=== PATIENT | male | born 1970 | race Caucasian/White ===

== ENCOUNTER 2021-11-01 14:37 | Emergency (ER) | payer SELFPAY ==
[~2021-11-01] VITALS: Ht 185.4 cm; Wt 131.5 kg
[~2021-11-01 14:37] MED LIST: CEPH500 PO; HYDACE5; HYDACE5 PO; RXCEPH500 PO
[2021-11-01 15:50] LABS: BASOPHILS ABSOLUTE AUTO 0.05 K/mm3 (0.00-0.23); BASOPHILS PERCENT AUTO 0 % (0-2); EOSINOPHILS PERCENT AUTO 0 % (0-6); Hematocrit 39.7 % (37.0-53.0); Hemoglobin 13.6 g/dL (13.5-17.5); IMMATURE GRAN ABSOLUTE AUTO 0.24 K/mm3 (0.00-0.10); IMMATURE GRAN PERCENT AUTO 1 % (0-1); LYMPHOCYTES ABSOLUTE AUTO 1.14 K/mm3 (0.84-5.20); LYMPHOCYTES PERCENT AUTO 5 % (21-46); MONOCYTES ABSOLUTE AUTO 1.72 K/mm3 (0.16-1.47); MONOCYTES PERCENT AUTO 7 % (4-13); Mean Corpuscular HGB Conc 34.3 g/dL (31.5-36.5); Mean Corpuscular Volume 82 fL (80-100); Mean Platelet Volume 10.8 fL (9.1-12.4); NEUTROPHILS ABSOLUTE AUTO 20.02 K/mm3 (1.96-9.15); NEUTROPHILS PERCENT AUTO 87 % (41-73); Platelet Count 231 K/mm3 (150-400); RDW Coefficient Variation 12.1 % (11.7-14.2); RDW Standard Deviation 36.2 fL (35.1-46.3); Red Blood Cell Count 4.85 M/mm3 (4.30-5.90); White Blood Cell Count 23.17 K/mm3 (4.00-11.30)
[2021-11-01 16:11] LABS: Alanine Aminotransfer (ALT/SGP 21 U/L (12-78); Albumin, Blood 3.5 g/dL (3.4-5.0); Albumin/Globulin Ratio 0.9 (0.8-1.8); Alk Phos 80 U/L (50-136); Anion Gap 7 mmol/L (6-16); Aspartate Aminotrans (AST/SGOT 8 U/L (12-37); Bilirubin, Total 0.8 mg/dL (0.1-1.0); Blood Urea Nitrogen 10 mg/dL (8-24); Bun/Creatinine Ratio 23.6 (12.0-20.0); C-REACTIVE PROTEIN, EXT RANGE >19.000 mg/dL (0.000-0.300); CO2, Blood 24 mmol/L (21-32); Chloride, Blood 99 mmol/L (98-108); Creatinine, Blood 0.42 mg/dL (0.60-1.20); Glomerular Filtration Rate 129 (60-); Glucose, Blood 285 mg/dL (70-99); Potassium, Blood 3.6 mmol/L (3.5-5.5); Sodium, Blood 130 mmol/L (136-145); Total Protein, Blood 7.5 g/dL (6.4-8.2)
[2021-11-01] MEDS ORDERED: CEPH500 PO (16:47)
[2021-11-01] MEDS ORDERED: Bactrim Ds Tab1 EACH PO (16:47)
== END 2021-11-01 17:02 | disposition home or self-care (01) ==
LOC: ER 14:37
PROVIDERS: Physician Assistant
DX: L03.115 Cellulitis of right lower limb (principal); R73.9 Hyperglycemia, unspecified
CPT/HCPCS: 36415; 80053; 85025; 86140; 96374; 99283-25; J0690

== ENCOUNTER 2021-11-06 14:48 | Inpatient (IN) | payer SELFPAY ==
[~2021-11-06] VITALS: Ht 188 cm; Wt 132.4 kg
[~2021-11-06 14:48] MED LIST changes: +Bactrim Ds Tab1 EACH PO
[2021-11-06 15:33] LABS: BASOPHILS ABSOLUTE AUTO 0.08 K/mm3 (0.00-0.23); BASOPHILS PERCENT AUTO 0 % (0-2); EOSINOPHILS PERCENT AUTO 1 % (0-6); Hematocrit 38.5 % (37.0-53.0); Hemoglobin 13.1 g/dL (13.5-17.5); IMMATURE GRAN ABSOLUTE AUTO 0.38 K/mm3 (0.00-0.10); IMMATURE GRAN PERCENT AUTO 2 % (0-1); LYMPHOCYTES ABSOLUTE AUTO 2.13 K/mm3 (0.84-5.20); LYMPHOCYTES PERCENT AUTO 12 % (21-46); MONOCYTES ABSOLUTE AUTO 1.19 K/mm3 (0.16-1.47); MONOCYTES PERCENT AUTO 7 % (4-13); Mean Corpuscular HGB 27.8 pg (26.0-34.0); Mean Corpuscular Volume 82 fL (80-100); Mean Platelet Volume 10.2 fL (9.1-12.4); NEUTROPHILS ABSOLUTE AUTO 14.03 K/mm3 (1.96-9.15); NEUTROPHILS PERCENT AUTO 78 % (41-73); Platelet Count 344 K/mm3 (150-400); RDW Coefficient Variation 11.9 % (11.7-14.2); RDW Standard Deviation 35.8 fL (35.1-46.3); Red Blood Cell Count 4.72 M/mm3 (4.30-5.90); White Blood Cell Count 17.91 K/mm3 (4.00-11.30)
[2021-11-06 16:33] LABS: Albumin, Blood 2.9 g/dL (3.4-5.0); Albumin/Globulin Ratio 0.6 (0.8-1.8); Bilirubin, Total 0.4 mg/dL (0.1-1.0); Bun/Creatinine Ratio 18.9 (12.0-20.0); Calcium, Blood 9.4 mg/dL (8.5-10.1); Creatinine, Blood 0.64 mg/dL (0.60-1.20); Globulin, Blood 5.2 g/dL (2.2-4.0); Potassium, Blood 3.6 mmol/L (3.5-5.5); Total Protein, Blood 8.1 g/dL (6.4-8.2)
--- NOTE | 2021-11-06 22:24 | NUR ---
PT NEW ADMIT FOR R FOOT INFECTION, PODIATRY CONSULTED IN ER. PT 1 SBA W/ FWW TO BED. NON-WEIGHT BEARING TO R FOOT. ASHLEY WRAP TO R FOOT APPEARS CDI. IVF PER ORDERS.USES URINAL AT BEDSIDE.PT DENIES PAIN, EDUCATED ON NPO STATUS AT MIDNIGHT. VSS. CALL LIGHT IN REACH.
--- NOTE | 2021-11-07 04:10 | NUR ---
SHIFT SUMMARY NO ACUTE CHANGES SINCE PT ARRIVAL TO THE FLOOR. NPO SINCE MIDNIGHT. UP WITH 1 ASSIST FWW TO [facility]. DENIES PAIN, ABX AND IVF PER ORDERS. CALLS APPROPRIATELY. CALL LIGHT IN REACH, WILL REPORT TO DAY RN.
[2021-11-07 05:02] LABS: BASOPHILS ABSOLUTE AUTO 0.06 K/mm3 (0.00-0.23); BASOPHILS PERCENT AUTO 0 % (0-2); EOSINOPHILS ABSOLUTE AUTO 0.15 K/mm3 (0.00-0.68); EOSINOPHILS PERCENT AUTO 1 % (0-6); Hematocrit 33.7 % (37.0-53.0); Hemoglobin 11.1 g/dL (13.5-17.5); IMMATURE GRAN ABSOLUTE AUTO 0.28 K/mm3 (0.00-0.10); IMMATURE GRAN PERCENT AUTO 2 % (0-1); LYMPHOCYTES ABSOLUTE AUTO 2.23 K/mm3 (0.84-5.20); LYMPHOCYTES PERCENT AUTO 16 % (21-46); MONOCYTES PERCENT AUTO 6 % (4-13); Mean Corpuscular HGB 27.5 pg (26.0-34.0); Mean Corpuscular HGB Conc 32.9 g/dL (31.5-36.5); Mean Corpuscular Volume 83 fL (80-100); Mean Platelet Volume 10.4 fL (9.1-12.4); NEUTROPHILS PERCENT AUTO 74 % (41-73); Platelet Count 317 K/mm3 (150-400); RDW Coefficient Variation 12.2 % (11.7-14.2); RDW Standard Deviation 37.1 fL (35.1-46.3); Red Blood Cell Count 4.04 M/mm3 (4.30-5.90); White Blood Cell Count 14.12 K/mm3 (4.00-11.30)
[2021-11-07 05:30] LABS: Albumin, Blood 2.2 g/dL (3.4-5.0); Albumin/Globulin Ratio 0.5 (0.8-1.8); Bilirubin, Total 0.5 mg/dL (0.1-1.0); Bun/Creatinine Ratio 54.2 (12.0-20.0); Creatinine, Blood 0.17 mg/dL (0.60-1.20); Globulin, Blood 4.1 g/dL (2.2-4.0); Potassium, Blood 3.8 mmol/L (3.5-5.5); Total Protein, Blood 6.3 g/dL (6.4-8.2)
[2021-11-07 08:19] LABS: Mean Platelet Volume 10.4 fL (9.1-12.4); Platelet Count 318 K/mm3 (150-400)
[2021-11-07 11:35] LABS: Influenza A, PCR NEGATIVE (NEGATIVE); Influenza B, PCR NEGATIVE (NEGATIVE); Resp Syncytial Virus, PCR NEGATIVE (NEGATIVE); SARS-Cov-2 (COVID-19) PCR, MMC NEGATIVE (NEGATIVE)
--- NOTE | 2021-11-07 13:24 | NUR ---
PT TO OR AT ABOUT 1205
--- NOTE | 2021-11-07 16:18 | NUR ---
POST OP: REPORT RECEIVED FROM ALIRIO TELEGRAPHER AGENT. PT TO UNIT AT 1440. PT IS A/O, VSS, EFFECTED LEG ELEVATED ON PILLOWS IN BED. PT DENIES PAIN AT THIS TIME. DRESSING TO R FOOT CDI. WILL CTM
--- NOTE | 2021-11-08 04:59 | NUR ---
POD1 FOR TMA OF THE RIGHT FOOT. VSS. PT HAS NOT C/O ANY PAIN, REPORTS OF PRESSURE FROM THE BANDAGE. PT AMBULATED TO THE BATHROOM MMULTIPLE TIMES WITH ONE ASSIST, FWW AND GT BELT. REDDNESS OF THE RLE HAS NOT EXTENDED PAST THE MARKINGS ON THE PATIENTS LEG. PT VOIDING AND HAD A BM. CURRENTLY RESTING IN NO DISTRESS.
[2021-11-08 05:45] LABS: Vancomycin, Trough 7.9 ug/mL (5.0-10.0)
[2021-11-08 08:38] LABS: BASOPHILS ABSOLUTE AUTO 0.03 K/mm3 (0.00-0.23); BASOPHILS PERCENT AUTO 0 % (0-2); EOSINOPHILS ABSOLUTE AUTO 0.19 K/mm3 (0.00-0.68); EOSINOPHILS PERCENT AUTO 2 % (0-6); Hematocrit 33.8 % (37.0-53.0); Hemoglobin 11.1 g/dL (13.5-17.5); IMMATURE GRAN PERCENT AUTO 2 % (0-1); LYMPHOCYTES ABSOLUTE AUTO 2.84 K/mm3 (0.84-5.20); LYMPHOCYTES PERCENT AUTO 24 % (21-46); MONOCYTES ABSOLUTE AUTO 0.61 K/mm3 (0.16-1.47); MONOCYTES PERCENT AUTO 5 % (4-13); Mean Corpuscular HGB 27.5 pg (26.0-34.0); Mean Corpuscular HGB Conc 32.8 g/dL (31.5-36.5); Mean Corpuscular Volume 84 fL (80-100); Mean Platelet Volume 10.3 fL (9.1-12.4); NEUTROPHILS ABSOLUTE AUTO 7.99 K/mm3 (1.96-9.15); NEUTROPHILS PERCENT AUTO 67 % (41-73); Platelet Count 351 K/mm3 (150-400); RDW Coefficient Variation 12.2 % (11.7-14.2); RDW Standard Deviation 37.1 fL (35.1-46.3); Red Blood Cell Count 4.03 M/mm3 (4.30-5.90); White Blood Cell Count 11.86 K/mm3 (4.00-11.30)
[2021-11-08 08:55] LABS: Albumin, Blood 2.2 g/dL (3.4-5.0); Albumin/Globulin Ratio 0.5 (0.8-1.8); Bilirubin, Total 0.3 mg/dL (0.1-1.0); Bun/Creatinine Ratio 21.1 (12.0-20.0); C-REACTIVE PROTEIN, EXT RANGE 10.6 mg/dL (0.000-0.300); Calcium, Blood 8.2 mg/dL (8.5-10.1); Creatinine, Blood 0.43 mg/dL (0.60-1.20); Globulin, Blood 4.4 g/dL (2.2-4.0); Potassium, Blood 3.9 mmol/L (3.5-5.5); Total Protein, Blood 6.6 g/dL (6.4-8.2)
--- NOTE | 2021-11-08 17:43 | NUR ---
SHIFT SUMMARY POD 1 TMA OF RIGHT FOOT. ABD PAD, GAUZE, & ASHLEY WRAP IN PLACE, C/D/I. DRESSING CHANGED THIS AM BY DR VASQUES. VSS ON RA. CBG'S TRENDING DOWN WITH HIGH SLIDING SCALE COVERAGE PER EMAR. DIETITIAN VISITED WITH PATIENT TODAY TO DISCUSS DIET/NUTRITION CHOICES. PATIENT VERY RECEPTIVE OF EDUCATION AND INFORMATION REGARDING NEW DIAGNOSIS. AMBULATING WELL TO BR WITH FWW & GB, SBA. MINIMAL PAIN, MANAGED PER EMAR. CALLS APPROPRIATELY, WILL REPORT TO ONCOMING RN.
--- NOTE | 2021-11-09 04:53 | NUR ---
ASSUMED CARE OF PT AT 1900. NO ACUTE CHANGES THIS SHIFT. PT IS A&OX3, SBA TO BR AND IS ABLE TO MAKE NEDS KNOWN. POST OP DAY 2 FOR TM AMPUTATION, CSM IS INTACT, NO COMPLAINTS OF PAIN. WRAPPED IN GAUZE AND ASHLEY BANDAGES, ALL ARE CDI. PT RECIEVING IV ABX. RESTS BETWEEN CARES, IS ABLE TO SLEEP 7+ HOURS. WILL CONTINUE TO MONITOR AND GIVE REPORT TO DAYSHIFT RN.
[2021-11-09 04:56] LABS: BASOPHILS ABSOLUTE AUTO 0.05 K/mm3 (0.00-0.23); BASOPHILS PERCENT AUTO 1 % (0-2); EOSINOPHILS ABSOLUTE AUTO 0.24 K/mm3 (0.00-0.68); EOSINOPHILS PERCENT AUTO 2 % (0-6); Hematocrit 32.9 % (37.0-53.0); Hemoglobin 11.1 g/dL (13.5-17.5); IMMATURE GRAN ABSOLUTE AUTO 0.12 K/mm3 (0.00-0.10); IMMATURE GRAN PERCENT AUTO 1 % (0-1); LYMPHOCYTES ABSOLUTE AUTO 2.12 K/mm3 (0.84-5.20); LYMPHOCYTES PERCENT AUTO 21 % (21-46); MONOCYTES ABSOLUTE AUTO 0.57 K/mm3 (0.16-1.47); MONOCYTES PERCENT AUTO 6 % (4-13); Mean Corpuscular HGB 28.2 pg (26.0-34.0); Mean Corpuscular HGB Conc 33.7 g/dL (31.5-36.5); Mean Corpuscular Volume 84 fL (80-100); Mean Platelet Volume 10.1 fL (9.1-12.4); NEUTROPHILS ABSOLUTE AUTO 6.95 K/mm3 (1.96-9.15); NEUTROPHILS PERCENT AUTO 69 % (41-73); Platelet Count 348 K/mm3 (150-400); RDW Coefficient Variation 12.1 % (11.7-14.2); RDW Standard Deviation 37.1 fL (35.1-46.3); Red Blood Cell Count 3.93 M/mm3 (4.30-5.90); White Blood Cell Count 10.05 K/mm3 (4.00-11.30)
[2021-11-09 05:21] LABS: Anion Gap 8 mmol/L (6-16); Blood Urea Nitrogen 10 mg/dL (8-24); Bun/Creatinine Ratio 21.3 (12.0-20.0); CO2, Blood 25 mmol/L (21-32); Chloride, Blood 101 mmol/L (98-108); Creatinine, Blood 0.47 mg/dL (0.60-1.20); Glomerular Filtration Rate 124 (60-); Glucose, Blood 235 mg/dL (70-99); Potassium, Blood 3.9 mmol/L (3.5-5.5); Sodium, Blood 134 mmol/L (136-145); Vancomycin, Trough 16.1 ug/mL (5.0-10.0)
--- NOTE | 2021-11-09 18:39 | NUR ---
SHIFT SUMMARY POD 2 TMA OF R FOOT. NO ACUTE CHANEGS TODAY, VSS ON RA. BETTER CONTROL OF CBG'S WITH ADJUSTMENTS TO INSULIN AND METFORMIN. DR VASQUES CHANGED DRESSING TODAY AND REPORTS IMPROVMENT TO FOOT/R LEG. PATEINT DENIES PAIN. AMBULATING TO BR, SBA W/ FWW & GB. POWERGLIDE PLACED TODAY TO JAMES. PROVIDED DIABETES, CBG CHECK, AND INSULIN ADMINISTRATION EDUCATION TODAY, PATIENT RECEPTIVE. CALLS APPROPRIATELY, WILL REPORT TO ONCOMING RN.
--- NOTE | 2021-11-10 05:11 | NUR ---
ASSUMED CARE OF PT AT 1900 HRS. NO ACUTE CHANGES THIS SHIFT. PT IS A&OX4, MIN ASSIST TO BR W/ FWW AND IS ABLE TO MAKE NEEDS KNOWN. POST OP DAY 3 FOR TMA, HAS GAUZE IN PLACE AND WRAPPED IN ASHLEY, BANDAGES CDI. CSM IN ALL EXTREMITIES. DENIES PAIN. PT IS ABLE TO SLEEP 7+ HOURS THIS SHIFT. WILL CONTINUE TO MONITOR AND GIVE HANDOFF REPORT TO DAYSHIFT RN.
[2021-11-10 06:09] LABS: BASOPHILS ABSOLUTE AUTO 0.03 K/mm3 (0.00-0.23); BASOPHILS PERCENT AUTO 0 % (0-2); EOSINOPHILS ABSOLUTE AUTO 0.16 K/mm3 (0.00-0.68); EOSINOPHILS PERCENT AUTO 2 % (0-6); Hemoglobin 11.5 g/dL (13.5-17.5); IMMATURE GRAN PERCENT AUTO 1 % (0-1); LYMPHOCYTES ABSOLUTE AUTO 1.73 K/mm3 (0.84-5.20); LYMPHOCYTES PERCENT AUTO 18 % (21-46); MONOCYTES ABSOLUTE AUTO 0.59 K/mm3 (0.16-1.47); MONOCYTES PERCENT AUTO 6 % (4-13); Mean Corpuscular HGB 27.4 pg (26.0-34.0); Mean Corpuscular HGB Conc 32.9 g/dL (31.5-36.5); Mean Corpuscular Volume 83 fL (80-100); Mean Platelet Volume 9.9 fL (9.1-12.4); NEUTROPHILS ABSOLUTE AUTO 7.03 K/mm3 (1.96-9.15); NEUTROPHILS PERCENT AUTO 73 % (41-73); Platelet Count 371 K/mm3 (150-400); RDW Coefficient Variation 12.2 % (11.7-14.2); RDW Standard Deviation 37.3 fL (35.1-46.3); White Blood Cell Count 9.64 K/mm3 (4.00-11.30)
[2021-11-10 06:33] LABS: Bun/Creatinine Ratio 16.2 (12.0-20.0); Calcium, Blood 8.6 mg/dL (8.5-10.1); Creatinine, Blood 0.43 mg/dL (0.60-1.20); Potassium, Blood 4.1 mmol/L (3.5-5.5)
--- NOTE | 2021-11-10 09:47 | NUR ---
DR VASQUES IN TO SEE PT. CHANGED DRESSING.
--- NOTE | 2021-11-10 13:58 | NUR ---
MAIL TELLER IN TO SEE PT.
[2021-11-10 14:09] LABS: Vancomycin, Trough 12.1 ug/mL (5.0-10.0)
--- NOTE | 2021-11-10 17:27 | NUR ---
SUMMARY NO ACUTE CHANGES T/O SHIFT. EDUCATED PT ON ADMINISTERING INSULIN. PT ATTENTIVE AND RECEPTIVE TO EDUCATION. MET W/LOGISTICS OFFICER. DR VASQUES CHANGED DRESSING TODAY. PT ONE PERSON SBA TO RESTROOM. MAINTAINS NWB STATUS TO RLE WELL USING FWW. EATING DINNER AT THIS TIME. DENIES ANY NEEDS. CALL LIGHT IN REACH.
[2021-11-11 05:15] LABS: BASOPHILS ABSOLUTE AUTO 0.04 K/mm3 (0.00-0.23); BASOPHILS PERCENT AUTO 0 % (0-2); EOSINOPHILS ABSOLUTE AUTO 0.21 K/mm3 (0.00-0.68); EOSINOPHILS PERCENT AUTO 2 % (0-6); Hemoglobin 11.8 g/dL (13.5-17.5); IMMATURE GRAN ABSOLUTE AUTO 0.09 K/mm3 (0.00-0.10); IMMATURE GRAN PERCENT AUTO 1 % (0-1); LYMPHOCYTES ABSOLUTE AUTO 2.01 K/mm3 (0.84-5.20); LYMPHOCYTES PERCENT AUTO 22 % (21-46); MONOCYTES ABSOLUTE AUTO 0.51 K/mm3 (0.16-1.47); MONOCYTES PERCENT AUTO 6 % (4-13); Mean Corpuscular HGB 27.5 pg (26.0-34.0); Mean Corpuscular HGB Conc 31.9 g/dL (31.5-36.5); Mean Corpuscular Volume 86 fL (80-100); NEUTROPHILS ABSOLUTE AUTO 6.27 K/mm3 (1.96-9.15); NEUTROPHILS PERCENT AUTO 69 % (41-73); Platelet Count 404 K/mm3 (150-400); RDW Coefficient Variation 12.4 % (11.7-14.2); RDW Standard Deviation 38.9 fL (35.1-46.3); Red Blood Cell Count 4.29 M/mm3 (4.30-5.90); White Blood Cell Count 9.13 K/mm3 (4.00-11.30)
[2021-11-11 05:24] LABS: Bun/Creatinine Ratio 17.9 (12.0-20.0); C-REACTIVE PROTEIN, EXT RANGE 3.95 mg/dL (0.000-0.300); Calcium, Blood 8.7 mg/dL (8.5-10.1); Creatinine, Blood 0.5 mg/dL (0.60-1.20)
--- NOTE | 2021-11-11 08:48 | NUR ---
SUMMARY UNEVENTFUL SHIFT. PT HOPING FOR DISCHARGE SOON.
--- NOTE | 2021-11-11 11:17 | NUR ---
DR VASQUES IN TO SEE PT. WANTS TO SEE PT IN OFFICE ON 11/19/21. PLACED REFERRAL IN DC INSTRUCTIONS.
--- NOTE | 2021-11-11 17:20 | NUR ---
SUMMARY NO ACUTE CHANGES THIS SHIFT. DR VASQUES IN TO SEE PT. REVIEWED ADMINISTRATION OF INSULIN AND USE OF GLUCOMETER W/PT. PT ENGAGED AND ASKS QUESTIONS. CALL LIGHT IN REACH.
[2021-11-12 05:13] LABS: BASOPHILS ABSOLUTE AUTO 0.06 K/mm3 (0.00-0.23); BASOPHILS PERCENT AUTO 1 % (0-2); EOSINOPHILS PERCENT AUTO 3 % (0-6); Hematocrit 33.3 % (37.0-53.0); Hemoglobin 10.8 g/dL (13.5-17.5); IMMATURE GRAN PERCENT AUTO 1 % (0-1); LYMPHOCYTES ABSOLUTE AUTO 2.19 K/mm3 (0.84-5.20); LYMPHOCYTES PERCENT AUTO 28 % (21-46); MONOCYTES ABSOLUTE AUTO 0.68 K/mm3 (0.16-1.47); MONOCYTES PERCENT AUTO 9 % (4-13); Mean Corpuscular HGB 27.5 pg (26.0-34.0); Mean Corpuscular HGB Conc 32.4 g/dL (31.5-36.5); Mean Corpuscular Volume 85 fL (80-100); Mean Platelet Volume 9.8 fL (9.1-12.4); NEUTROPHILS ABSOLUTE AUTO 4.51 K/mm3 (1.96-9.15); NEUTROPHILS PERCENT AUTO 58 % (41-73); Platelet Count 412 K/mm3 (150-400); RDW Coefficient Variation 12.1 % (11.7-14.2); RDW Standard Deviation 37.2 fL (35.1-46.3); Red Blood Cell Count 3.93 M/mm3 (4.30-5.90); White Blood Cell Count 7.74 K/mm3 (4.00-11.30)
[2021-11-12 05:32] LABS: Bun/Creatinine Ratio 17.3 (12.0-20.0); Calcium, Blood 8.5 mg/dL (8.5-10.1); Creatinine, Blood 0.46 mg/dL (0.60-1.20); Potassium, Blood 4.2 mmol/L (3.5-5.5)
--- NOTE | 2021-11-12 05:52 | NUR ---
SUMMARY PT PLANS FOR POSSIBLE DISCHARGE TODAY.PT GAVE OWN INSULIN SHOT TONIGHT.
[2021-11-12] MEDS ORDERED: Acetaminophen650 M1 PO (13:11)
[2021-11-12] MEDS ORDERED: Acerola C500 MG PO (13:12)
[2021-11-12] MEDS ORDERED: ATOR10 PO (13:13)
[2021-11-12] MEDS ORDERED: DOCU100 PO (13:14)
[2021-11-12] MEDS ORDERED: FERSU300 PO (13:15)
[2021-11-12] MEDS ORDERED: HYDRA25 PO (13:15)
[2021-11-12] MEDS ORDERED: HYDR1TAB94 PO (13:19)
[2021-11-12] MEDS ORDERED: INSULANI SC (13:23)
[2021-11-12] MEDS ORDERED: HUMULIN R500 UNIT/2 (13:25)
[2021-11-12] MEDS ORDERED: LISI20 PO (13:27)
[2021-11-12] MEDS ORDERED: AMOX875 PO (13:29)
[2021-11-12] MEDS ORDERED: Glucophage 850850 MG PO (13:30)
[2021-11-12] MEDS ORDERED: LACT PO (13:30)
[2021-11-12] MEDS ORDERED: DOXY100 PO (13:30)
--- NOTE | 2021-11-12 17:21 | NUR ---
PT DISCHARGED HOME FROM UNIT AT APROX 1423. PT GIVEN EXTENSIVE WRITTEN AND VERBAL DC INSTURUCTIONS. PT DEMONSTRATED USE OF GLUCOMETER AND HOW TO READ SLIDING SCALE. DEMONSTRATED ADMINISTRATION OF HOME INSULIN. PT GIVEN [employer] VOUCERS FOR INSULIN AND ALSO EDUCATED ON ESTABLIISHING W/VA PT WAS IN THE SERVICE. EDUCATED THAT THESE BENEFITS WILL HELP HIM PAY FOR MEDICATIONS WELL CONTINUING HEALTH CARE-PT VERBALIZED UNDERSTANDING. WC TO CAR. MEDICATIONS FAXED TO [facility].
== END 2021-11-12 14:23 | disposition home health service (06) | DRG 854 ==
LOC: ER 14:48 → SURS 18:00
PROVIDERS: Family Medicine; Physician Assistant; Podiatrist Foot & Ankle Surgery; ADMIT Internal Medicine
PROC: 0Y6M0Z9 Detachment at Right Foot, Partial 1st Ray, Open Approach (ICD-10-PCS; principal; 2021-11-07 12:30)
PROC: 0QBN0ZZ Excision of Right Metatarsal, Open Approach (ICD-10-PCS; 2021-11-07 12:30)
DX: A41.1 Sepsis due to other specified staphylococcus (principal); E87.1 Hypo-osmolality and hyponatremia; L02.611 Cutaneous abscess of right foot; L03.115 Cellulitis of right lower limb; L03.126 Acute lymphangitis of left lower limb; Z66 Do not resuscitate; E11.40 Type 2 diabetes mellitus with diabetic neuropathy, unspecified; E66.9 Obesity, unspecified; E11.65 Type 2 diabetes mellitus with hyperglycemia; Z20.822 Contact with and (suspected) exposure to COVID-19; I10 Essential (primary) hypertension; E88.81 Metabolic syndrome and other insulin resistance; E11.621 Type 2 diabetes mellitus with foot ulcer; L97.519 Non-pressure chronic ulcer of other part of right foot with unspecified severity; R01.1 Cardiac murmur, unspecified; D64.89 Other specified anemias; Z98.890 Other specified postprocedural states; Z79.899 Other long term (current) drug therapy; Z79.2 Long term (current) use of antibiotics; Z68.37 Body mass index [BMI] 37.0-37.9, adult
CPT/HCPCS: 0241U; 36415; 73620; 80048; 80053; 80202; 82947; 83036; 83605; 85025; 85049; 85651; 86140; 87040; 87070; 87075; 87205; 88307; 88311; 93005; 93010; 94760; 96365; 96366; 96367; 97110; 97116; 97162; 97530; 99285-25; A9270; C8929; J1100; J1650; J1815; J1885; J2185; J2370; J2405; J2543; J2704; J2795; J3010; J3370; J3480; J7030; J7050; J7060; Q9957

== ENCOUNTER 2021-12-05 07:33 | Day surgery (SDC) | payer SELFPAY ==
[~2021-12-05 07:33] MED LIST changes: +AMOX875 PO; +ATOR10 PO; +Acerola C500 MG PO; +Acetaminophen650 M1 PO; +DOCU100 PO; +DOXY100 PO; +FERSU300 PO; +Glucophage 850850 MG PO; +HUMULIN R500 UNIT/2; +HYDR1TAB94 PO; +HYDRA25 PO; +INSULANI SC; +LACT PO; +LISI20 PO
== END 2021-12-05 23:45 | disposition home or self-care (01) ==
LOC: WOUND 07:33
DX: T87.81 Dehiscence of amputation stump (principal); E11.621 Type 2 diabetes mellitus with foot ulcer; I10 Essential (primary) hypertension
CPT/HCPCS: G0463

== ENCOUNTER 2021-12-26 01:48 | Day surgery (SDC) | payer OTHER | END 2021-12-26 23:43 | disposition home or self-care (01) | LOC: WOUND 01:48 | DX: E11.621 Type 2 diabetes mellitus with foot ulcer (principal); L97.515 Non-pressure chronic ulcer of other part of right foot with muscle involvement without evidence of necrosis; T87.81 Dehiscence of amputation stump; I10 Essential (primary) hypertension | CPT/HCPCS: A9270; G0463 ==

== ENCOUNTER 2022-01-02 04:11 | Day surgery (SDC) | payer OTHER | END 2022-01-02 22:58 | disposition home or self-care (01) | LOC: WOUND 04:11 | DX: E11.621 Type 2 diabetes mellitus with foot ulcer (principal); L97.515 Non-pressure chronic ulcer of other part of right foot with muscle involvement without evidence of necrosis; T87.81 Dehiscence of amputation stump; I10 Essential (primary) hypertension | CPT/HCPCS: A9270; G0463 ==

== ENCOUNTER 2022-01-09 02:24 | Day surgery (SDC) | payer SELFPAY | END 2022-01-09 23:02 | disposition home or self-care (01) | LOC: WOUND 02:24 | DX: T87.81 Dehiscence of amputation stump (principal); E11.621 Type 2 diabetes mellitus with foot ulcer; I10 Essential (primary) hypertension | CPT/HCPCS: A9270; G0463 ==

== ENCOUNTER 2022-01-16 01:46 | Day surgery (SDC) | payer SELFPAY | END 2022-01-16 22:55 | disposition home or self-care (01) | LOC: WOUND 01:46 | DX: E11.621 Type 2 diabetes mellitus with foot ulcer (principal); L97.515 Non-pressure chronic ulcer of other part of right foot with muscle involvement without evidence of necrosis; T87.81 Dehiscence of amputation stump; I10 Essential (primary) hypertension | CPT/HCPCS: G0463 ==

== ENCOUNTER 2022-01-23 01:06 | Day surgery (SDC) | payer OTHER | END 2022-01-23 23:48 | disposition home or self-care (01) | LOC: WOUND 01:06 | DX: T87.81 Dehiscence of amputation stump (principal); E11.621 Type 2 diabetes mellitus with foot ulcer; I10 Essential (primary) hypertension | CPT/HCPCS: A9270; G0463 ==